=== PATIENT | male | born 1980 | race Caucasian/White ===

== ENCOUNTER 2021-04-03 18:26 | Emergency (ER) | payer MEDICAID ==
[~2021-04-03] VITALS: Ht 167.6 cm; Wt 56.7 kg
[2021-04-03 18:33] VITALS: BP 146/102
[2021-04-03] MEDS ORDERED: INSU100I26 SQ (19:05)
--- NOTE | 2021-04-03 19:25 | NUR ---
Patient discharged to home in stable condition. Rx and Written and verbal after care instructions given. Patient verbalizes understanding of instruction.
== END 2021-04-03 19:26 | disposition home or self-care (01) ==
LOC: ER 18:36
DX: Z76.0 Encounter for issue of repeat prescription (principal); E11.9 Type 2 diabetes mellitus without complications; F41.9 Anxiety disorder, unspecified; F32.A Depression, unspecified; F90.9 Attention-deficit hyperactivity disorder, unspecified type; Z79.4 Long term (current) use of insulin